=== PATIENT | female | born 1975 | race Caucasian/White ===

== ENCOUNTER 2017-04-16 04:23 | Emergency (ER) | payer OTHER ==
[~2017-04-16] VITALS: Ht 162.6 cm; Wt 81.6 kg
[~2017-04-16 04:23] MED LIST: ALBUTEROL0.83 MG/ML IH; AMOX TR-K CLV 81 TA2 PO; ASPIRIN PO; BROMFED DM COU118 ML PO; DICYCLOMINE HCL20 MG PO; FISH OIL 1,0001 CAP PO; FLEXERIL10 MG PO; GLUCOPHAGE850 MG PO; GLUCOTROL10 MG PO; IBUPROFEN800 MG PO; JANUVIA25 MG PO; LIDODERM30 EA TOP; LIPITOR20 MG PO; LISINOPRIL10 MG PO; LOMOTIL WHITE2.5 M1 PO; LOPID600 MG PO; LORTAB 10/500 T1 TAB PO; LORTAB 5/500 TA1 TA2 PO; MAGIC MOUTHWASH PO; MEDROL PO; METFORMIN HCL1000 M1 PO; METFORMIN HCL500 M1 PO; NO MEDICATIONS; PERCOCET5/325 PO; PRAVASTATIN SOD40 MG PO; PRILOSEC20 M1 PO; SYNTHROID PO; VOLTAREN50 MG PO; VOLTAREN75 MG PO; ZOCOR PO; ZOFRAN ODT4 MG PO; ZOLOFT100 MG PO; ZOLOFT50 MG PO; [UNRECOGNIZED DRUG - REMARK]
[2017-04-16] MEDS ORDERED: NOVOLOG FL100 UNIT/1 SUBQ (04:36)
[2017-04-16] MEDS ORDERED: PHENTERMINE H37.5 M1 PO (04:37)
[2017-04-16] MEDS ORDERED: ELIMITE60 GM TOP (05:06)
== END 2017-04-16 05:39 | disposition home or self-care (01) ==
LOC: SED 04:23
DX: L29.9 Pruritus, unspecified (principal); E11.9 Type 2 diabetes mellitus without complications; E78.5 Hyperlipidemia, unspecified; F41.9 Anxiety disorder, unspecified; Z90.710 Acquired absence of both cervix and uterus; Z88.5 Allergy status to narcotic agent; Z79.4 Long term (current) use of insulin; Z79.899 Other long term (current) drug therapy
CPT/HCPCS: 99282